=== PATIENT | male | born 1960 | race Caucasian/White ===

== ENCOUNTER 2018-11-25 02:42 | Emergency (ER) | payer OTHER ==
--- NOTE | 2018-11-25 03:07 | ER Report ---
History and Physical Time Seen By MD: 03:04 Hx. of Stated Complaint: PATIENT STATES WEAKNESS, NAUSEA, AND "NOT FEELING GOOD" TODAY HPI/ROS CHIEF COMPLAINT: Not feeling well HISTORY OF PRESENT ILLNESS: This is a 58-year-old male. He is having nausea and not feeling good today. Also with some weakness. Has had a little bit of diarrhea as well. Mild upset stomach. No shortness of breath. Feels like he might be a little dehydrated. No chest pain but maybe a little heaviness. Concerned about the possibility of heart problems given his sister just having had a heart attack. Not short of breath. One episode of vomiting. No headache. Allergies: Coded Allergies: Penicillins (Verified Allergy, Unknown, 11/25/18) Home Meds Active Scripts Promethazine Hcl (PROMETHAZINE HCL) 25 Mg Tablet, 25 MG PO Q6H PRN for NAUSEA/VOMITING, #20 TAB 0 Refills Prov:POP ECHEVERRIA MD 11/25/18 Ondansetron 4 Mg Odt (ONDANSETRON 4 MG ODT) 4 Mg Tab.rapdis, 4 MG PO Q6H PRN for NAUSEA/VOMITING, #20 TAB 0 Refills Prov:POP ECHEVERRIA MD 11/25/18 Reviewed Nurses Notes: Yes Constitutional Vital Sign - Last 24 Hours 11/25/18 11/25/18 11/25/18 11/25/18 02:47 02:47 03:00 03:05 Temp 97.9 Pulse 58 66 Resp 14 B/P (MAP) 138/79 (98) 138/79 132/79 (96) Pulse Ox 96 95 O2 Delivery Room Air 11/25/18 11/25/18 11/25/18 11/25/18 03:20 03:30 03:35 04:00 Pulse 66 65 B/P (MAP) 134/80 (98) 122/71 (88) Pulse Ox 96 95 11/25/18 11/25/18 11/25/18 11/25/18 04:05 04:10 04:15 04:30 Pulse 56 60 ??? B/P (MAP) 122/80 (94) Pulse Ox 92 91 11/25/18 04:45 Pulse ??? Physical Exam General Appearance: The patient is alert. No acute distress. Eyes: Pupils are equal, round. No pallor, injection or icterus. ENT: Mucous membranes are moist. Normal oral mucosa. Posterior oropharynx is normal. Normal tympanic membranes and canals. Neck: Supple and non tender. Respiratory: Lungs are clear to auscultation. Cardiovascular: Regular rate and rhythm. No murmurs, gallops or rubs. Normal capillary refill. No edema. Gastrointestinal: Abdomen is soft and non tender. Nondistended. Normal active bowel sounds. Neurological: Alert and oriented x3. No focal neurologic deficits Skin: Warm and dry. No rashes. Musculoskeletal: Extremities are nontender. No tenderness in palpation of the cervical, thoracic and lumbar spine. DIFFERENTIAL DIAGNOSIS: After history and physical exam, differential diagnosis was considered for patient with nausea, diarrhea, likely viral syndrome but we'll also check for electrolyte abnormalities, dehydration, kidney problems and infection, and acute coronary syndrome Medical Decision Making Data Points Result Diagram: 11/25/18 0320 11/25/18 0320 Laboratory Hematology Test 11/25/18 03:20 White Blood Count 6.1 k/uL (4.5-11.0) Red Blood Count 4.90 M/uL (4.00-5.60) Hemoglobin 14.9 g/dL (14.0-18.0) Hematocrit 43.1 % (42.0-52.0) Mean Corpuscular Volume 88.0 fL (80.0-96.0) Mean Corpuscular Hemoglobin 30.4 pg (26.0-33.0) Mean Corpuscular Hemoglobin Concent 34.5 g/dL (32.0-36.0) Red Cell Distribution Width 13.3 % (11.5-14.5) Platelet Count 252 K/uL (150-450) Mean Platelet Volume 7.3 fL (7.2-11.1) Neutrophils (%) (Auto) 76.2 % (39.4-72.5) H Lymphocytes (%) (Auto) 15.8 % (17.6-49.6) L Monocytes (%) (Auto) 6.2 % (4.1-12.4) Eosinophils (%) (Auto) 1.1 % (0.4-6.7) Basophils (%) (Auto) 0.7 % (0.3-1.4) Nucleated RBC Relative Count (auto) 0.1 /100WBC Neutrophils # (Auto) 4.7 K/uL (2.0-7.4) Lymphocytes # (Auto) 1.0 K/uL (1.3-3.6) L Monocytes # (Auto) 0.4 K/uL (0.3-1.0) Eosinophils # (Auto) 0.1 K/uL (0.0-0.5) Basophils # (Auto) 0.0 K/uL (0.0-0.1) Nucleated RBC Absolute Count (auto) 0.00 K/uL Chemistry Test 11/25/18 03:20 Sodium Level 138 mmol/L (137-145) Potassium Level 3.9 mmol/L (3.5-5.0) Chloride Level 103 mmol/L (98-107) Carbon Dioxide Level 24 mmol/L (22-30) Blood Urea Nitrogen 19 mg/dl (9-21) Creatinine 0.80 mg/dl (0.66-1.25) Glomerular Filtration Rate Calc > 60.0 Random Glucose 105 mg/dl (75-110) Calcium Level 9.6 mg/dl (8.4-10.2) Total Bilirubin 0.5 mg/dl (0.2-1.3) Aspartate Amino Transf (AST/SGOT) 29 U/L (0-35) Alanine Aminotransferase (ALT/SGPT) 35 U/L (0-56) Alkaline Phosphatase 108 U/L (0-126) Troponin I < 0.012 ng/ml Total Protein 7.5 g/dl (6.3-8.2) Albumin 4.4 g/dl (3.5-5.0) Amylase Level 105 U/L (0-110) Lipase 123 U/L (23-300) Urinalysis Test 11/25/18 02:45 Urine Color Yellow Urine Clarity Clear Urine pH 5.0 pH (4.8-9.5) Urine Specific [place] 1.020 Urine Protein Negative mg/dL (NEGATIVE) Urine Glucose (UA) Negative mg/dL (NEGATIVE) Urine Ketones Trace mg/dL (NEGATIVE) Urine Blood Negative (NEGATIVE) Urine Nitrite Negative (NEGATIVE) Urine Bilirubin Negative (NEGATIVE) Urine Urobilinogen Negative mg/dL (0.2-1.9) Urine Leukocyte Esterase Negative (NEGATIVE) Urine RBC <1 /HPF (0-2/HPF) Urine WBC 1 /HPF (0-5/HPF) Urine Squamous Epithelial Cells Few /LPF (</=FEW) Urine Bacteria Negative /HPF (NONE-FEW) Urine Mucus None /HPF (NONE-FEW) EKG/Imaging EKG Interpretation 12 lead EKG: Rhythm: Sinus rhythm with first-degree AV block, rate 63 [place]: normal QRS: normal ST segments: normal Imaging Abdominal series with single view of the chest: 11/25/2018 3:46 AM HISTORY: Vomiting and fatigue for one day. Abdominal pain. COMPARISON:none. FINDINGS: Nonspecific nonobstructive bowel gas pattern. There is gas and some fecal material in the colon without significant distention. No air-fluid levels. No visible free air. No calculus. Degenerative changes in the spine. Cardiomediastinal contours are normal. No pulmonary nodule, infiltrate, or consolidation. Pleural spaces are clear. Bony thorax is intact. IMPRESSION: 1. Nonspecific bowel gas pattern. 2. No acute cardiopulmonary process. Report Dictated By: Leon aClderon MD at 11/25/2018 3:57 AM ED Course/Re-evaluation Clinical Indication for ER IV: Hydration, IV Access ED Course [place] better with a liter fluid and Zofran. Laboratory studies unremarkable as is the EKG and x-ray. Reviewed this with the patient. Provided Zofran and Phenergan for take home use. Decision to Disposition Date: Nov 25, 2018 Decision to Disposition Time: 04:24 Depart Departure Latest Vital Signs Vital Signs Date Time Temp Pulse Resp B/P (MAP) Pulse Ox O2 Delivery O2 Flow Rate FiO2 11/25/18 04:45 ??? 11/25/18 04:30 122/80 (94) 11/25/18 04:15 91 11/25/18 02:47 97.9 14 Room Air Impression: Primary Impression: Viral syndrome Condition: Improved Disposition: HOME OR SELF-CARE New Scripts Promethazine Hcl (PROMETHAZINE HCL) 25 Mg Tablet 25 MG PO Q6H PRN for NAUSEA/VOMITING, #20 TAB 0 Refills Prov: POP ECHEVERRIA MD 11/25/18 Ondansetron 4 Mg Odt (ONDANSETRON 4 MG ODT) 4 Mg Tab.rapdis 4 MG PO Q6H PRN for NAUSEA/VOMITING, #20 TAB 0 Refills Prov: POP ECHEVERRIA MD 11/25/18 Patient Instructions: Gastroenteritis (ED) Additional Instructions: We think that your symptoms are caused by a virus. Rest and increase fluid intake. Take Zofran 4mg, one every 6 hours as needed for nausea. You can also try taking Phenergan 25mg, one every 6 hours as needed for nausea, but this medicine has a side effect of drowsiness, which can help you sleep if needed. Follow-up with your doctor when you return home. POP ECHEVERRIA MD Nov 25, 2018 03:07
--- NOTE | 2018-11-25 03:25 | EKG ---
FACILITY: [facility] PATIENT NAME: CAYLA ORTEGA : [id number] MR: [id number] V: [id number] EXAM DATE: ORDERING PHYSICIAN: POP ECHEVERRIA TECHNOLOGIST: EDMUNDO Test Reason : FATIGUE, VOMIT Blood Pressure : / mmHG Vent. Rate : 063 BPM Atrial Rate : 063 BPM P-R Int : 212 ms QRS Dur : 096 ms QT Int : 426 ms P-R-T Axes : 052 024 023 degrees QTc Int : 435 ms Sinus rhythm with 1st degree AV block Otherwise normal ECG No previous ECGs available Confirmed by JOSÉ HUGHES ([id number]) on 11/25/2018 6:26:46 AM Referred By: JACKI Confirmed By:JOSÉ HUGHES
[2018-11-25] MEDS ORDERED: NS(*) 0.9% 1000 ML BAG 1,000 ML IV ONE (03:30)
[2018-11-25] MEDS ORDERED: ONDANSETRON 4 MG/2 ML VIAL IVP ONE (03:30)
[2018-11-25 03:33] LABS: PLATELET COUNT, AUTOMATED 252 K/uL (150-450)
--- NOTE | 2018-11-25 04:05 | RADIOLOGY IMAGING REPORT ---
FACILITY: [facility] - [place], [place] PATIENT NAME: Chang Finley : 1960 MR: [id number] V: [id number] EXAM DATE: ORDERING PHYSICIAN: POP ECHEVERRIA TECHNOLOGIST: Location[place] [facility] [place] Patient: Chang Finley : 1960 Visit/Account:[id number] Date of Sevice: 11/25/2018 Abdominal series with single view of the chest: 11/25/2018 3:46 AM HISTORY: Vomiting and fatigue for one day. Abdominal pain. COMPARISON:none. FINDINGS: Nonspecific nonobstructive bowel gas pattern. There is gas and some fecal material in the colon without significant distention. No air-fluid levels. No visible free air. No calculus. Degenera tive changes in the spine. Cardiomediastinal contours are normal. No pulmonary nodule, infiltrate, or consolidation. Pleural sp aces are clear. Bony thorax is intact. IMPRESSION: 1. Nonspecific bowel gas pattern. 2. No acute cardiopulmonary process. Report Dictated By: Leon Calderon MD at 11/25/2018 3:57 AM Report E-Signed By: Leon Calderon MD at 11/25/2018 3:58 AM WSN:[id number]
[2018-11-25 04:30] VITALS: BP 122/80
[2018-11-25] MEDS ORDERED: PROMETHAZINE HCL 25 MG TAB TH 2 TAB/BOTTLE PO ONE (04:30)
[2018-11-25] MEDS ORDERED: ONDA4TAB9 PO (04:30)
[2018-11-25] MEDS ORDERED: ONDANSETRON 4 MG ODT TH SL ONE (04:30)
[2018-11-25] MEDS ORDERED: PROM-110 PO (04:30)
== END 2018-11-25 04:49 | disposition home or self-care (01) ==
LOC: ER 02:54
DX: B34.9 Viral infection, unspecified (principal)
CPT/HCPCS: 74022; 81001; 82150; 83690; 84484; 85025; 93005; 96361; 96374; 99284; J2405; J7030; S0119; 82040; 82247; 82310; 82374; 82435; 82565; 82947; 84075; 84132; 84155; 84295; 84450; 84460; 84520